=== PATIENT | female | born 1975 | race Caucasian/White ===

== ENCOUNTER 2016-12-18 21:32 | Emergency (ER) | payer OTHER ==
[~2016-12-18] VITALS: Ht 167.6 cm; Wt 61.4 kg
[2016-12-18] MEDS ORDERED: ONDANSETRON 2MG/ML, 2ML ONE (23:45)
[2016-12-18] MEDS ORDERED: MORPHINE SULFATE 4 MG/ML, 1ML ONE (23:45)
[2016-12-19] MEDS ORDERED: ONDANSETRON 2MG/ML, 2ML IVPush ONE
[2016-12-19 00:05] LABS: ASPARTATE AMINO TRANSFERASE 10 U/L (15-37); BLOOD UREA NITROGEN 5 mg/dL (7-18)
[2016-12-19 00:12] LABS: ANISOCYTOSIS 1+; HYPOCHROMIA 1+; OVALOCYTES 1+; POIKILOCYTOSIS 1+; POLYCHROMASIA 1+
[2016-12-19] MEDS ORDERED: DIAZEPAM 5 MG TABLET ONE (00:40)
[2016-12-19] MEDS ORDERED: MORPHINE SULFATE 4 MG/ML, 1ML ONE (00:40)
[2016-12-19] MEDS ORDERED: DIAZEPAM 5 MG TABLET PO ONE (01:00)
[2016-12-19] MEDS ORDERED: MORPHINE SULFATE 4 MG/ML, 1ML IVPush ONE ×2 (01:00)
[2016-12-19 02:13] VITALS: BP 127/81
== END 2016-12-19 02:15 | disposition home or self-care (01) ==
LOC: ED 23:58
DX: N93.9 Abnormal uterine and vaginal bleeding, unspecified (principal); H65.23 Chronic serous otitis media, bilateral; D50.9 Iron deficiency anemia, unspecified; J32.0 Chronic maxillary sinusitis; D25.1 Intramural leiomyoma of uterus
CPT/HCPCS: 36415; 76830; 80053; 84703; 85025; 85610; 86850; 86900; 93005; 96374; 96375; 96376; 99285; J2405; J7512